=== PATIENT | female | born 1995 ===

== ENCOUNTER 2019-08-20 02:12 | Inpatient (IN) | payer OTHER ==
[2019-08-20] MEDS ORDERED: TERBUTALINE 1 MG/1 ML INJ SUB-Q PRN (02:52)
[2019-08-20] MEDS ORDERED: MINERAL OIL 30 ML ORAL LIQD PO PRN (02:52)
[2019-08-20] MEDS ORDERED: AMPICILLIN/NS 2 GM/100 ML 2 GM/100 ML BAG IV ONE (02:52)
[2019-08-20] MEDS ORDERED: LIDOCAINE (2%) 20 MG/1 ML VIAL 20 ML MDV INFILTRATI ONE (02:52)
[2019-08-20] MEDS ORDERED: ePHEDrine SULFATE 50 MG/1 ML INJ IV PRN (02:52)
[2019-08-20] MEDS ORDERED: fentaNYL 100 MCG/2 ML INJ IV PRN (02:52)
[2019-08-20] MEDS ORDERED: TERBUTALINE 1 MG/1 ML INJ IVP PRN (02:52)
[2019-08-20] MEDS ORDERED: OXYTOCIN 20 UNIT/1000ML DRIP 20 UNITS/1,000 ML BAG IV SCH (03:00)
[2019-08-20] MEDS ORDERED: LACTATED RINGERS 1,000 ML IV SCH (03:00)
[2019-08-20 03:43] LABS: Hematocrit 36.9 % (30.3-42.9); Hemoglobin 12.2 gm/dl (10.1-14.3); Mean Corpuscular HGB Conc 33 % (30-34); Mean Corpuscular Volume 85 fl (79-97); Platelet Count 254 K/mm3 (140-440); Red Blood Count 4.34 M/mm3 (3.65-5.03); Red Cell Distribution Width 15.1 % (13.2-15.2)
--- NOTE | 2019-08-20 04:01 | History and Physical Report ---
History of Present Illness Date of examination: 08/20/19 Date of admission: 08/20/19 02:52 Chief complaint: Contractions History of present illness: 24yo G 2 P 1 0 0 1 @ 37 weeks 4 days here with c/o contractions. She reports +FMs but denies VB or LOF. She is a [facility] patient who initiated care at 8 weeks gestation. Her course is significant for obesity and anemia (on iron therapy). LABS: Opos, Antibody Screen neg, Pap Smear neg, RI, RPR neg, HBsAg neg, HIV neg, AFP neg, Diabetes Screen 118, GC/CT neg, GBS neg Past History Past Medical History: other (hepatitis @ 3yo) Past Surgical History: no surgical history Family/Genetic History: diabetes (grandmother) Social history: , lives with family, full code. denies: smoking, alcohol abuse, prescription drug abuse, IV drug use - Obstetrical History Expected Date of Delivery: 09/06/19 Actual Gestation: 37 Week(s) 4 Day(s) : 2 Para: 1 Hx # Term Pregnancies: 1 Number of Pregnancies: 0 Spontaneous Abortions: 0 Induced : 0 Number of Living Children: 1 #1 Infant Gender: Male year: 2,[birth year] Birthweight: 3.175 kg (7 lbs) Method of Delivery: Vaginal Gestational age at delivery: 36 Complications: none Medications and Allergies Allergies Allergy/AdvReac Type Severity Reaction Status Date / Time No Known Allergies Allergy Verified 08/20/19 02:56 Active Meds: Active Medications Ephedrine Sulfate (Ephedrine Sulfate) 10 mg IV Q2M PRN PRN Reason: Hypotension Fentanyl (Sublimaze) 100 mcg IV Q2H PRN PRN Reason: Labor Pain Oxytocin/Sodium Chloride (Pitocin/Ns 20 Unit/1000ml Drip) 20 units in 1,000 mls @ 125 mls/hr IV DIRECT MUSTAPHA Lactated Ringer's (Lactated Ringers) 1,000 mls @ 125 mls/hr IV DIRECT MUSTAPHA Mineral Oil (Mineral Oil) 30 ml PO QHS PRN PRN Reason: Constipation Terbutaline Sulfate (Brethine) 0.25 mg SUB-Q ONCE PRN PRN Reason: Hyperstimulation/Hypertonicity Terbutaline Sulfate (Brethine) 0.25 mg IVP ONCE PRN PRN Reason: Hyperstimulation/Hypertonicity Review of Systems All systems: negative - Obstetrical FHR: auscultation normal, category 1 Cervical Dilatation: 6 (per RN) Cervical Effacement Percentage: 60 (per RN) station: -1(per RN) Uterine Contraction Pattern: Regular Results Result Diagrams: 08/20/19 03:15 All other labs normal. Assessment and Plan - Patient Problems (1) 37 weeks gestation of Current Visit: Yes Status: Acute (2) Active labor at term Current Visit: Yes Status: Acute Plan to address problem: Admit to L&D with routine labor orders Anticipate vaginal delivery
[2019-08-20] MEDS ORDERED: miSOPROStol 200 MCG TAB ONE (05:07)
[2019-08-20] MEDS ORDERED: miSOPROStol 200 MCG TAB PR ONE (05:27)
--- NOTE | 2019-08-20 05:28 | Procedure Note ---
OB Delivery Note - Delivery Date of Delivery: 08/20/19 (0452) Surgeon: BREEZY GUSTAFSON (CNM) Estimated blood loss: 200cc - Vaginal Delivery presentation: vertex Delivery position: OA Intrapartum events: none Delivery induction: none Delivery augmentation: rupture of membranes (AROM) Delivery monitor: external FHT, external uterine Route of delivery: Delivery placenta: manual (05:13) Delivery cord: nuchal cord (CAN x1-reduced after delivery of head), 3 umbilical vessels Delivery laceration: none Anesthesia: intravenous Delivery comments: of a vigorous term 8 lbs 0 oz male on 08/20/19 @ 0452. Baby placed [id number] on maternal abdomen and dried. After 3 mins, umbilical cord double- clamped by me and cut by FOB. Cord blood collected. Spontaneous delivery of placenta attempted but partial cord avulsion noted. Fentanyl 100mcg IV given and placenta manually removed. Small lochia with clots noted. Patient tolerated the procedure with moderate discomfort. Fundal massage and IV Pitocin bolus initiated. Fundus F/ML/U-3. Cytotec 800mcg [place] administered. Placenta inspected and appeared to be intact but bedside US ordered to rule out any retained placenta segment. Placenta to pathology. Ancef 2gm IV x1 ordered. No lacerations noted. Perineum intact. Mom and baby in stable condition. - Infant A at 1 minute: 8 at 5 minutes: 9 Gender: Male (8 lbs 0 oz (3632 gm); 20.5 in)
[2019-08-20] MEDS ORDERED: LANOLIN/ZINC/DIMETHICONE (LANSINOH) 7 GM TP PRN (05:29)
[2019-08-20] MEDS ORDERED: PROMETHAZINE 25 MG TAB PO PRN (05:29)
[2019-08-20] MEDS ORDERED: PROMETHAZINE 25 MG RECT SUPP PR PRN (05:29)
[2019-08-20] MEDS ORDERED: WITCH HAZEL/ GLYCERIN PAD TP PRN (05:29)
[2019-08-20] MEDS ORDERED: ONDANSETRON 4 MG/2 ML INJ IV PRN (05:29)
[2019-08-20] MEDS ORDERED: ACETAMINOPHEN 325 MG TAB PO PRN (05:29)
[2019-08-20] MEDS ORDERED: diphenhydrAMINE 25 MG CAP PO PRN (05:29)
[2019-08-20] MEDS ORDERED: MAGNESIUM HYDROXIDE (MOM) ORAL LIQD UDC PO PRN (05:29)
[2019-08-20] MEDS ORDERED: HYDROcodone/ACETAMINOPHEN 5-325 MG TAB PO PRN (05:29)
--- NOTE | 2019-08-20 06:25 | Ultrasound Report ---
US pelvic limited INDICATION / CLINICAL INFORMATION: Rule out Placenta retention. COMPARISON: None available. FINDINGS: Enlarged hyperechoic areas are seen in the endometrial canal with the fundal region measuring 4.8 cm and the lower uterine segment measuring 4.6 cm. IMPRESSION: Hyperechoic area seen in the uterine fundus and lower uterine segment consistent with retained produc ts of conception Signer Name: Bipin SILVA Signed: 08/20/2019 6:20 AM Workstation Name: [id number]
[2019-08-20] MEDS ORDERED: BUTORPHANOL 2 MG/1 ML INJ IV ONE (06:40)
[2019-08-20] MEDS ORDERED: AMPICILLIN/NS 1 GM/50 ML 1 GM/50 ML BAG IV SCH (06:53)
--- NOTE | 2019-08-20 07:00 | Event Note ---
Date: 08/20/19 PAtient noted to have retained POC after delivery~5cm at uterine fundus Manual removal under sterile conditions minimal bleeding uterus boggy at beginning of procedure, firm at completion Patient tolerated the procedure well plan for metherginex1 dose oxytocin per protocol gent/clinda x 24 hours repeat CBC in 12 hours Repeat US prior to discharge Handle Sewer present Maternal status:hemodynamically stable Girish POWELL
[2019-08-20] MEDS ORDERED: GENTAMICIN/NS 120MG/100ML 120 MG/100 ML BAG IV ONE (08:30)
[2019-08-20] MEDS ORDERED: cefTRIAXone/NS 2 GM/100 ML 2 GM/100 ML BAG IV SCH (10:00)
[2019-08-20] MEDS ORDERED: FERROUS SULFATE 325 MG TAB PO SCH (10:00)
[2019-08-20] MEDS: FERROUS SULFATE 325 MG TAB PO SCH ×2 (10:19→23:12)
[2019-08-20] MEDS: PRENATAL VIT27-FE FUMARATE-FOLIC ACID VIT TAB PO SCH (10:19)
[2019-08-20] MEDS: IBUPROFEN 600 MG TAB PO SCH ×2 (10:25→18:42)
[2019-08-20] MEDS: GENTAMICIN/NS 80 MG/100 ML 100 ML IV SCH (18:12)
--- NOTE | 2019-08-20 18:15 | Ultrasound Report ---
ULTRASOUND PELVIS INDICATION: Retained placenta segment; s/p . TECHNIQUE: Transabdominal. Duplex Color Doppler used: Yes. COMPARISON: None available FINDINGS: Uterus: Present. Size: 17.7 x 10.5 x 11.6 cm. Endometrial complex: Markedly thickened and heterogeneous containing blood products in increased colo r Doppler flow, unchanged measuring 5.9 cm in thickness. Mass lesions: None. Additional findings: None. Right Ovary --not visualized secondary to bowel gas Left Ovary--not visualized secondary to bowel gas Urinary Bladder: Normal. Free Fluid: None. Additional Findings: None. IMPRESSION: 1. Markedly thickened heterogeneous endometrial stripe with increased color Doppler flow characterist ic for retained products of conception Signer Name: Frederick Adkins MD Signed: 08/20/2019 6:11 PM Workstation Name: [id number]
[2019-08-20 22:01] LABS: Hemoglobin 10.2 gm/dl (10.1-14.3)
[2019-08-21] MEDS: GENTAMICIN/NS 80 MG/100 ML 100 ML IV SCH ×2 (00:30→10:54)
[2019-08-21] MEDS: IBUPROFEN 600 MG TAB PO SCH ×3 (01:05→17:25)
[2019-08-21] MEDS: FERROUS SULFATE 325 MG TAB PO SCH ×2 (09:41→21:33)
[2019-08-21] MEDS: PRENATAL VIT27-FE FUMARATE-FOLIC ACID VIT TAB PO SCH (09:41)
[2019-08-21] MEDS ORDERED: SODIUM CHLORIDE 0.9% 1000 ML 1,000 ML IV SCH (10:00)
--- NOTE | 2019-08-21 11:45 | Progress Note ---
Assessment and Plan A: PP Day #1 s/p manual removal of placental fragments P: Follow Routine Orders Complete Clindaymcin and Gentamicin as ordered Depo Provera 150mg IM x 1 dose prior to discharge D/C home in the AM RTO in 6 Weeks Subjective - Subjective Date of service: 08/21/19 Patient reports: appetite normal, voiding normally, pain well controlled, flatus, ambulating normally : doing well, bottle feeding (and ) Objective - Vital Signs Latest vital signs: Vital Signs Temp Pulse Resp BP BP Pulse Ox 08/21/19 08:48 98.1 F 73 20 91/53 98 08/21/19 01:19 98.6 F 77 18 98/63 98 08/20/19 23:44 97.9 F 81 18 98/55 97 08/20/19 16:18 98.2 F 82 18 100/55 97 08/20/19 14:01 97.7 F 89 18 101/50 98 Intake and Output 08/20/19 08/21/19 08/21/19 22:59 06:59 14:59 Intake Total 750 390 Output Total 400 Balance 750 -10 Intake: IV 150 150 CLEOCIN 900 MG/50 mL 900 50 50 mg In 50 ml @ 100 mls/hr IV Q8H MUSTAPHA Rx#:[id number] Gentamicin/Ns 80 mg/100 100 100 ml 100 ml @ 200 mls/hr IV Q8H MUSTAPHA Rx#:[id number] Oral 600 240 Output: Urine 400 Void 400 Other: Total, Intake Amount 240 240 Total, Output Amount 400 # Voids Void 1 - Exam Breasts: Present: normal Cardiovascular: Present: Regular rate Lungs: Present: Clear to auscultation, Normal air movement Abdomen: Present: normal appearance, soft, normal bowel sounds Uterus: Present: normal, firm, fundal height below umbilicus Extremities: Present: normal - Labs Labs: Abnormal lab results 08/20/19 Range/Units 21:37 Hct 30.0 L D (30.3-42.9) %
[2019-08-21] MEDS ORDERED: medroxyPROGESTERone ACETATE 150 MG/ML SYRINGE IM ONE ×2 (11:46→14:37)
--- NOTE | 2019-08-21 11:49 | Discharge Summary ---
Providers - Providers Date of Admission: 08/20/19 02:52 Date of discharge: 08/22/19 Attending physician: CRISTY RUDOLPH MD Primary care physician: CRISTY RUDOLPH MD Hospitalization Reason for admission: active labor Delivery: Episiotomy: none Laceration: none Other procedures: none complications: none Discharge diagnosis: IUP at term delivered baby: male Condition at discharge: Good Disposition: DC-01 TO HOME OR SELFCARE Plan - Provider Discharge Summary Activity: routine, no sex for 6 weeks, no heavy lifting 4 weeks, no strenuous exercise Diet: routine Instructions: routine Additional instructions: [] Smoking cessation referral if applicable(refer to patient education folder for contact #) [] Refer to [facility]'s [facility] Booklet Call your doctor immediately for: * Fever > 100.5 * Heavy vaginal bleeding ( >1 pad per hour) * Severe persistent headache * Shortness of breath * Reddened, hot, painful area to leg or breast * Drainage or odor from incision. * Keep incision clean and dry at all times and follow doctor's instructions regarding bathing/showering - Follow up plan Follow up: CRISTY RUDOLPH MD [Primary Care Provider] - 6 Weeks
[2019-08-22] MEDS: IBUPROFEN 600 MG TAB PO SCH ×2 (04:56→09:29)
[2019-08-22] MEDS: PRENATAL VIT27-FE FUMARATE-FOLIC ACID VIT TAB PO SCH (09:31)
[2019-08-22] MEDS: FERROUS SULFATE 325 MG TAB PO SCH (09:31)
[2019-08-22 16:33] VITALS: BP 97/59
== END 2019-08-22 15:30 | disposition home or self-care (01) | DRG 807 ==
LOC: TRG 02:12 → LD 02:52 → OB 08:24
PROVIDERS: ADMIT Obstetrics & Gynecology; ATTEND Obstetrics & Gynecology
PROC: 10E0XZZ Delivery of Products of Conception, External Approach (ICD-10-PCS; principal; 2019-08-20)
PROC: 10907ZC Drainage of Amniotic Fluid, Therapeutic from Products of Conception, Via Natural or Artificial Opening (ICD-10-PCS; 2019-08-20)
DX: O69.81X0 Labor and delivery complicated by cord around neck, without compression, not applicable or unspecified (principal); Z37.0 Single live birth; Z3A.37 37 weeks gestation of pregnancy; Z83.3 Family history of diabetes mellitus
CPT/HCPCS: 36415; 76857; 85014; 85018; 85027; 86850; 86900; 86901; 88307; G0378; J0595; J0690; J0696; J1050; J1580; J2590; J3010; J7030; J7120